=== PATIENT | female | born 1950 | race Caucasian/White ===

== ENCOUNTER 2017-10-23 02:07 | Inpatient (IN) | payer MEDICARE, MEDICAID ==
[~2017-10-23] VITALS: Ht 165.1 cm; Wt 83.5 kg
[2017-10-23] MEDS ORDERED: IV NORMAL SALINE 1000 ML BAG IV ONE (02:15)
[2017-10-23 02:54] LABS: *BILIRUBIN,URIN NEGATIVE (NEGATIVE); *BLOOD, URINE Trace-intact (NEGATIVE); *CLARITY,URINE CLEAR (CLEAR); *COLOR,URINE YELLOW (YELLOW); *KETONES,URINE NEGATIVE (NEGATIVE); *PROTEIN,URINE NEGATIVE (NEGATIVE); *UROBILINOGEN,URINE 0.2 E.U./dl (NORMAL); LEUKOCYTE ESTERASE ,URINE NEGATIVE (NEGATIVE); NITRITE, URINE NEGATIVE (NEGATIVE); UGLUCOSE NEGATIVE (NEGATIVE)
[2017-10-23 02:56] LABS: BASOPHILS % (AUTO) 0.2 % (0.0-2.0); EOSINOPHILS % (AUTO) 0.3 % (0.0-7.0); HEMATOCRIT 34.5 % (31.2-41.9); HEMOGLOBIN 11.9 g/dL (10.9-14.3); LYMPHOCYTES # (AUTO) 1.3 K/uL (20.0-40.0); LYMPHOCYTES % (AUTO) 22.6 % (20.5-51.5); MEAN CORPUSCULAR HEMOGLOBIN 30.1 uug (24.7-32.8); MEAN CORPUSCULAR HGB CONC 35 g/dL (32.3-35.6); MEAN CORPUSCULAR VOLUME 87.5 fL (75.5-95.3); MONOCYTES # (AUTO) 0.2 K/uL (2.0-10.0); NEUTROPHILS # (AUTO) 4.2 K/uL (1.8-8.9); NEUTROPHILS % (AUTO) 73.9 % (38.5-71.5); PLATELET COUNT (AUTO) 282 K/uL (179-408); RED BLOOD CELL COUNT(AUTO) 3.94 MIL/uL (3.63-4.92); WHITE BLOOD COUNT (AUTO) 5.7 K/uL (3.8-11.8)
[2017-10-23 02:58] LABS: BACTERIA,URINE NONE SEEN /HPF (NONE SEEN); RBC,URINE 0-3 /HPF (0-3); SQUAMOUS EPITHELIAL CELL,UR FEW /HPF (NONE SEEN); WBC,URINE 0-3 /HPF (0-3)
[2017-10-23 03:01] LABS: *AMPHETAMINE, URINE NEGATIVE (NEGATIVE); *BARBITURATE, URINE NEGATIVE (NEGATIVE); *CANNABINOID, URINE NEGATIVE (NEGATIVE); *COCCAINE, URINE NEGATIVE (NEGATIVE); *OPIATE, URINE NEGATIVE (NEGATIVE); *PHENCYCLIDINE SCREEN,URINE NEGATIVE (NEGATIVE)
[2017-10-23 03:05] LABS: ALANINE AMINOTRANSFERASE 29 U/L (14-59); ALKALINE PHOSPHATASE 64 U/L (50-136); ASPARTATE AMINOTRANSFERASE 20 U/L (15-37); BILIRUBIN,DIRECT 0.1 mg/dL (0.0-0.2); BILIRUBIN,TOTAL 0.2 mg/dL (0.2-1.0); CARBON DIOXIDE 22 mmol/L (21-32); CHLORIDE 109 mmol/L (98-107); CREATININE 0.7 mg/dL (0.6-1.3); GLUCOSE 167 mg/dL (74-106); POTASSIUM 3.1 mmol/L (3.5-5.1); TOTAL PROTEIN, SERUM 6.8 g/dL (6.4-8.2); UREA NITROGEN, BLOOD 10 mg/dL (7-18)
[2017-10-23 03:06] LABS: ACETAMINOPHEN < 2.0 ug/mL (10-30); ETHANOL 194 MG/DL (0-0)
[2017-10-23 03:13] LABS: THYROID STIMULATING HORMONE 0.388 mIU/mL (0.358-3.740)
[2017-10-23] MEDS ORDERED: LORAZEPAM 1 MG TABLET ONE (04:19)
[2017-10-23] MEDS ORDERED: HALOPERIDOL LACTATE 5 MG/1 ML VIAL ONE (04:21)
[2017-10-23] MEDS ORDERED: LORAZEPAM 0.5 MG TABLET PO ONE (04:30)
[2017-10-23] MEDS ORDERED: HALOPERIDOL LACTATE 5 MG/1 ML VIAL IM ONE (04:30)
[2017-10-23 09:00] VITALS: BP 140/65
[2017-10-23] MEDS ORDERED: ZOLPIDEM 5 MG TABLET PO PRN (09:45)
[2017-10-23] MEDS ORDERED: ACETAMINOPHEN 325 MG TABLET PO PRN (09:45)
[2017-10-23] MEDS ORDERED: MAGNESIUM HYDROXIDE 30 ML LIQUID UDC PO PRN (09:45)
[2017-10-23] MEDS ORDERED: MAG HYDROX/AL HYDROX/SIMETH 30 ML LIQUID UDC PO PRN (09:45)
[2017-10-23] MEDS ORDERED: LORAZEPAM 0.5 MG TABLET PO PRN ×2 (09:45→11:00)
[2017-10-23] MEDS ORDERED: ESCITALOPRAM OXALATE 10 MG TABLET NG SCH (11:00)
[2017-10-23] MEDS ORDERED: POTASSIUM CHLORIDE 20 MEQ TAB.PRT.SR PO ONE (12:15)
[2017-10-23] MEDS ORDERED: ESCITALOPRAM OXALATE 10 MG TABLET PO ONE (12:45)
[2017-10-23 16:30] VITALS: BP 146/59
[2017-10-23] MEDS ORDERED: IBUP-1957 PO (16:52)
[2017-10-23] MEDS ORDERED: DEXT15DR6 EACHEYE (16:52)
[2017-10-23] MEDS ORDERED: PREG50CA PO (16:52)
[2017-10-23 21:04] VITALS: BP 120/62
[2017-10-24] MEDS ORDERED: IBUPROFEN 600 MG TABLET PO PRN (02:45)
[2017-10-24 07:30] VITALS: BP 157/75
[2017-10-24] MEDS ORDERED: IBUPROFEN 800 MG TABLET PO PRN (08:00)
[2017-10-24] MEDS: PREGABALIN 50 MG CAPSULE PO SCH ×2 (08:40→16:33)
[2017-10-24] MEDS: ESCITALOPRAM OXALATE 10 MG TABLET PO SCH (08:41)
[2017-10-24] MEDS: POLYVINYL ALCOHOL OPHT DROPS 15 ML BOTTLE EACHEYE PRN ×2 (08:41→12:30)
[2017-10-24 20:00] VITALS: BP 148/74
[2017-10-25 07:30] VITALS: BP 171/70
[2017-10-25] MEDS: PREGABALIN 50 MG CAPSULE PO SCH ×2 (08:12→17:13)
[2017-10-25] MEDS: ESCITALOPRAM OXALATE 10 MG TABLET PO SCH (08:12)
[2017-10-25] MEDS: POLYVINYL ALCOHOL OPHT DROPS 15 ML BOTTLE EACHEYE PRN (08:12)
[2017-10-25 10:34] VITALS: BP 153/71
[2017-10-25] MEDS ORDERED: AMLODIPINE 5 MG TABLET PO SCH (14:30)
[2017-10-25 16:12] VITALS: BP 122/71
[2017-10-25] MEDS ORDERED: ESCI10TA PO ×2 (20:18→21:00)
== END 2017-10-25 21:21 | disposition home or self-care (01) | DRG 881 ==
LOC: ER 02:10 → GPS 08:53
PROVIDERS: ADMIT Psychiatry & Neurology Psychiatry; ATTEND Nurse Practitioner Acute Care
DX: F43.21 Adjustment disorder with depressed mood (principal); F10.129 Alcohol abuse with intoxication, unspecified; Y90.6 Blood alcohol level of 120-199 mg/100 ml; M79.7 Fibromyalgia; G89.21 Chronic pain due to trauma; T14.8XXS Other injury of unspecified body region, sequela; V89.2XXS Person injured in unspecified motor-vehicle accident, traffic, sequela; Z87.891 Personal history of nicotine dependence; Z91.5 Personal history of self-harm; I11.9 Hypertensive heart disease without heart failure; E87.6 Hypokalemia
CPT/HCPCS: 36415; 70030-TC; 71045; 80307; 84443; 85025; 93005; A4663; G0480; G0480-TC; J1630

== ENCOUNTER 2021-02-18 18:12 | Emergency (ER) | payer MEDICARE, OTHER ==
[~2021-02-18] VITALS: Ht 162.6 cm; Wt 81.6 kg
[~2021-02-18 18:12] MED LIST: DEXT15DR6 EACHEYE; ESCI10TA PO; IBUP-1957 PO; PREG50CA PO
[2021-02-18] MEDS ORDERED: MELO15TA13 PO (18:48)
[2021-02-18] MEDS ORDERED: ASPI81TA31 PO (18:48)
[2021-02-18] MEDS ORDERED: KETOROLAC TROMETHAMINE 15 MG INJ IM ONE (19:15)
[2021-02-18] MEDS ORDERED: KETOROLAC TROMETHAMINE 15 MG INJ ONE (19:17)
[2021-02-18 19:28] LABS: CREATININE 0.8 mg/dL (0.6-1.3); HEMATOCRIT 37.1 % (31.2-41.9); MEAN CORPUSCULAR HEMOGLOBIN 30.1 uug (24.7-32.8); MEAN CORPUSCULAR VOLUME 87.9 fL (75.5-95.3); PLATELET COUNT (AUTO) 251 K/uL (179-408); POTASSIUM 3.7 mmol/L (3.5-5.1)
[2021-02-18 19:41] LABS: BILIRUBIN,TOTAL 0.3 mg/dL (0.2-1.0); TOTAL PROTEIN, SERUM 6.9 g/dL (6.4-8.2)
--- NOTE | 2021-02-18 20:24 | NUR ---
Patient discharged to home in stable condition. Written and verbal after care instructions given. Patient verbalizes understanding of instructions. Stressed follow up or return to ER for worsening s/s. Patient out of ER with steady gait, no acute signs of distress, VSS, all belongings taken.
[2021-02-18 20:25] VITALS: BP 123/60
== END 2021-02-18 20:36 | disposition home or self-care (01) ==
LOC: ER 18:20
DX: M79.671 Pain in right foot (principal); M79.661 Pain in right lower leg; M79.7 Fibromyalgia; E66.9 Obesity, unspecified; Z68.30 Body mass index [BMI] 30.0-30.9, adult; E11.9 Type 2 diabetes mellitus without complications; F32.A Depression, unspecified; Z79.899 Other long term (current) drug therapy
CPT/HCPCS: 36415; 73630; 80053; 83880; 85025; 93971; 96372; 99284; J1885; A4663